=== PATIENT | male | born 1940 | race Caucasian/White ===

== ENCOUNTER 2020-07-06 14:57 | Emergency (ER) | payer MEDICARE, BC ==
[~2020-07-06] VITALS: Ht 175.3 cm; Wt 62.3 kg
[2020-07-06 15:07] VITALS: BP 163/101; TEMP 98.3
[2020-07-06] MEDS ORDERED: CEPHALEXIN500 M1 PO (15:25)
[2020-07-06 15:38] VITALS: PULSE 87
== END 2020-07-06 15:38 | disposition home or self-care (01) ==
LOC: COL.ER 14:57 → EDBD 14:59 → COL.ER 14:59
DX: L03.113 Cellulitis of right upper limb (principal)

== ENCOUNTER 2020-08-09 09:27 | Emergency (ER) | payer MEDICARE, BC ==
[~2020-08-09] VITALS: Ht 175.3 cm; Wt 60.9 kg
[~2020-08-09 09:27] MED LIST: CEPHALEXIN500 M1 PO
[2020-08-09 09:33] VITALS: TEMP 97.4
[2020-08-09] MEDS ORDERED: BACTRIM DS 8001 TAB PO (10:47)
[2020-08-09] MEDS ORDERED: OMNICEF 300MG300 MG PO (10:47)
[2020-08-09] MEDS ORDERED: TYLENOL 325MG325 MG PO (10:48)
[2020-08-09 11:09] VITALS: BP 181/110; PULSE 83
== END 2020-08-09 11:11 | disposition home or self-care (01) ==
LOC: COL.ER 09:27
DX: L03.113 Cellulitis of right upper limb (principal); L08.9 Local infection of the skin and subcutaneous tissue, unspecified

== ENCOUNTER → 2022-05-23 | Outpatient (CLI) | payer MEDICARE, BC ==
[~2022-05-23] MED LIST changes: +ASPIRIN E.C. 8181 MG PO; +AZULFIDINE500 MG/TAB PO; +BACTRIM DS 8001 TAB PO; +IMBRUVICA420 MG PO; +K-TAB20 PO; +MAXZIDE-25MG TA1 TAB PO; +NATURAL IRON65 MG PO; +OMNICEF 300MG300 MG PO; +PRINIVIL20 MG PO; +ROXICODONE 55 MG/TAB PO; +TOPROL XL 50MG50 MG PO; +TYLENOL 325MG325 MG PO; +TYLENOL 500MG500 MG PO; +VITAMIN C500 MG PO
== END ==
LOC: COL.RAD 10:11
DX: I10 Essential (primary) hypertension (principal)